=== PATIENT | female | born 1965 | race African-American/Black ===

== ENCOUNTER 2016-11-24 19:25 | Emergency (ER) | payer OTHER ==
[~2016-11-24] VITALS: Ht 160 cm; Wt 65.3 kg
[~2016-11-24 19:25] MED LIST: BACTRIM-DS1 EA ORAL; IBUPROFEN600 MG ORAL; NKM; NORCO 5-325 TA1 EACH PO
[2016-11-24 19:40] VITALS: BP 180/100
[2016-11-24] MEDS ORDERED: Sodium Chloride 500ML 500 ML IV ONE (19:55)
[2016-11-24 20:17] LABS: APPEARANCE,URINE CLEAR; BASOPHILS % (AUTO) 0.7 % (0.0-2.0); EOSINOPHILS % (AUTO) 3.9 % (0.0-3.0); KETONES,URINE NEGATIVE (NEGATIVE); LEUKOCYTE ESTERASE ,URINE 3+ (NEGATIVE); MEAN CORPUSCULAR HEMOGLOBIN 27.3 PG (27.0-31.0); MEAN CORPUSCULAR HGB CONC 31.6 G/DL (32.0-36.0); MEAN CORPUSCULAR VOLUME 86 FL (80-99); MEAN PLATELET VOLUME 7.1 FL (6.5-10.1); MONOCYTES % (AUTO) 7.9 % (1.0-10.0); NEUTROPHILS % (AUTO) 44.5 % (45.0-75.0); NITRITE,URINE NEGATIVE (NEGATIVE); PH,URINE 7 (4.5-8.0); PLATELET COUNT 279 K/UL (150-450); PROTEIN,URINE NEGATIVE (NEGATIVE); RED BLOOD COUNT 4.72 M/UL (4.20-5.40); RED CELL DISTRIBUTION WIDTH 12.2 % (11.6-14.8); UROBILINOGEN,URINE NORMAL MG/DL (0.0-1.0); WHITE BLOOD COUNT 7.2 K/UL (4.8-10.8)
[2016-11-24 20:27] LABS: BACTERIA,URINE FEW /HPF; SQUAMOUS EPITHELIAL CELL,UR FEW /LPF (NONE/OCC)
[2016-11-24 20:47] LABS: ALANINE AMINOTRANSFERASE 10 U/L (3-33); ALBUMIN/GLOBULIN RATIO 1.7 (1.0-2.7); ANION GAP 12 (5-15); ASPARTATE AMINO TRANSFERASE 15 U/L (5-40); CALCIUM 9.8 mg/dL (8.6-10.2); CARBON DIOXIDE 27 mEQ/L (20-30); CHLORIDE 104 mEQ/L (98-107); GLOMERULAR FILTRATION RATE > 60 mL/min (>60); HEMOLYSIS 5; LIPASE 26 U/L (< 60); POTASSIUM 4.3 mEQ/L (3.4-4.9); SODIUM 143 mEQ/L (135-145); TOTAL PROTEIN 7.5 g/dL (6.6-8.7)
[2016-11-24] MEDS ORDERED: Morphine Sulfate 4mg/ml Inj IVP ONE (21:15)
[2016-11-24] MEDS ORDERED: KEFLEX500 MG ORAL (22:27)
[2016-11-24] MEDS ORDERED: TRAMADOL HCL50 MG ORAL (22:27)
[2016-11-24 22:30] VITALS: BP 165/84
--- NOTE | 2016-11-25 09:25 | Diagnostic Imaging Report ---
Clinical Indication: Lower abdominal and right flank pain Technique: No oral contrast utilized, per emergency room physician request IV administration nonionic contrast. Venous phase spiral acquisition obtained through the abdomen and pelvis. Multiplanar reconstructions were generated. Total dose length product 553 mGycm. CTDIvol(s) 11 mGy. Dose reduction achieved using automated exposure control Comparison: None Findings: What may be a short normal appendix is seen posterior to the cecum. No findings to suggest acute appendicitis are evident. There is no evidence of diverticulosis or diverticulitis. No small bowel distention. No free or loculated intraperitoneal air or fluid is evident. Distal esophagus is unremarkable. There is equivocal mild wall thickening of the gastric body and antrum, more likely an artifact of under distention The liver demonstrates a 19 mm lesion in segment 6. This demonstrates low attenuation with dense peripheral nodular enhancement. No other focal liver lesions are demonstrated. The gallbladder, bile ducts, pancreas, spleen, adrenals are unremarkable. There is mild fullness of bilateral renal collecting systems, but no apparent delay in renal contrast enhancement and no ureteral obstructing lesion demonstrated. No focal renal abnormality demonstrated. No renal or ureteral calculi. There are prominent varicosities in the left adnexal region. The left ovarian vein is dilated. No pelvic mass or adenopathy. Bladder is unremarkable. The included lung bases demonstrate an unusual soft tissues mass in the anteromedial right costophrenic sulcus. This measures 16 x 19 mm in diameter. There is also an incompletely included at least 15 mm water attenuation lesion inferior to the right lower lobe pulmonary vein. Atelectatic changes are seen at both lung bases. Impression: Equivocal mild wall thickening of the gastric body and antrum, as more likely an artifact of under distention, but gastritis or peptic ulcer disease not excludable 19 mm low-attenuation lesion with dense peripheral nodular enhancement in the right hepatic lobe. Likely but not definitively a benign hemangioma. Further evaluation with MRI or CT with hemangioma protocol recommended Prominent left adnexal varicosities. Likely secondary to ovarian venous reflux. Correlate with possible symptoms of pelvic congestion syndrome 16 x 19 mm soft tissue mass in the anteromedial right costophrenic sulcus. Given the peripheral location, probably a focus of postinflammatory change. Neoplasm not completely excludable, and further evaluation is recommended Incompletely included at least 15 mm water attenuation lesion inferior to the right lower lobe pulmonary vein.. Likely an inclusion cyst. Recommend chest CT for further evaluation of the above findings Nonspecific mild fullness of bilateral renal collecting systems Incidental finding bilateral basilar atelectasis This agrees with the preliminary interpretation provided overnight by Dr. Pickett The CT scanner at [facility] is accredited by the [employer] and the scans are performed using protocols designed to limit radiation exposure to as low as reasonably achievable to attain images of sufficient resolution adequate for diagnostic evaluation.
--- NOTE | 2016-11-27 21:52 | Emergency Room Report ---
History of Present Illness General Chief Complaint: Abdominal Pain Source: Patient Present Illness HPI 51-year-old female presents ED complaining of lower abdominal pain for last 4 days. States pain is sharp, 8/10, radiating to the patient. Patient states she has had frequent urinary tract infections in the past. Denies fevers or chills. Denies nausea or vomiting. Denies chest pain shortness of breath. No other aggravating relieving factors. Denies any other associated symptoms Allergies: Coded Allergies: No Known Allergies (Unverified , 06/24/12) Patient History Past Medical History: none Past Surgical History: none Pertinent Family History: none Social History: Denies: smoking, alcohol use, drug use Last Menstrual Period: 02/11 Now: No : 4 Para: 6 Immunizations: UTD Reviewed Nursing Documentation: PMH: Agreed, PSxH: Agreed Nursing Documentation-PMH Past Medical History: No Stated History Review of Systems All Other Systems: negative except mentioned in HPI Physical Exam Vital Signs Date Time Temp Pulse Resp B/P (MAP) Pulse Ox O2 Delivery O2 Flow Rate FiO2 11/24/16 19:33 98.2 59 15 180/100 100 Room Air Sp02 EP Interpretation: reviewed, normal General Appearance: no apparent distress, alert, GCS 15, non-toxic Head: normocephalic, atraumatic Eyes: bilateral eye normal inspection, bilateral eye PERRL ENT: hearing grossly normal, normal pharynx, no angioedema, normal voice Neck: full range of motion, supple/symm/no masses Respiratory: chest non-tender, lungs clear, normal breath sounds, speaking full sentences Cardiovascular #1: regular rate, rhythm, no edema Cardiovascular #2: 2+ carotid (R), 2+ carotid (L), 2+ radial (R), 2+ radial (L) , 2+ dorsalis pedis (R), 2+ dorsalis pedis (L) Gastrointestinal: normal bowel sounds, soft, non-distended, no guarding, no rebound, tenderness Rectal: deferred Genitourinary: normal inspection, CVA tenderness (R), CVA tenderness (L) Musculoskeletal: back normal, gait/station normal, normal range of motion, non- tender Neurologic: alert, oriented x3, responsive, motor strength/tone normal, sensory intact, speech normal Psychiatric: judgement/insight normal, memory normal, mood/affect normal, no suicidal/homicidal ideation Reflexes: 3+ bicep (R), 3+ bicep (L), 3+ tricep (R), 3+ tricep (L), 3+ knee (R) , 3+ knee (L) Skin: normal color, no rash, warm/dry, well hydrated Lymphatic: no adenopathy Medical Decision Making Diagnostic Impression: Primary Impression: UTI (urinary tract infection) Qualified Codes: N39.0 - Urinary tract infection, site not specified Additional Impression: Abdominal pain Qualified Codes: R10.30 - Lower abdominal pain, unspecified ER Course Hospital Course 51-year-old F presents to ED with abdominal pain Differential diagnosis includes-appendicitis, cholecystitis, small bowel obstruction, gastritis, Clinical course Patient placed on stretcher. After initial history and physical I ordered labs , IV fluids, pain medications and CT scan Labs - no leukocytosis, electrolytes ok, LFTs normal, UA + bacteria CT scan shows thickening of the gastric wall consistent with gastritis, lesion in the liver consistent with hemangioma and possible nodule in the lung No acute findings however I did discuss these incidental findings with the patient. Recommend followup with PMD. Given the suprapubic pain radiating to the flanks along with positive bacteria the urine we will treat as UTI I did tell the patient if symptoms do recur she should return for possible ultrasound I feel this is a highly complex case requiring extensive working including EKG/ Rhythm strip, Xray/CT/US, Blood/urine lab work, repeat exams while in ED, and administration of strong opiates/narcotics for pain control, admission to hospital or close patient follow up. Diagnosis - UTI, abdominal pain Stable and discharged to home with Rx Keflex, Tramadol. Followup with PMD. Return to ED if symptoms recur or worsen Labs Test 11/24/16 20:00 White Blood Count 7.2 K/UL (4.8-10.8) Red Blood Count 4.72 M/UL (4.20-5.40) Hemoglobin 12.9 G/DL (12.0-16.0) Hematocrit 40.8 % (37.0-47.0) Mean Corpuscular Volume 86 FL (80-99) Mean Corpuscular Hemoglobin 27.3 PG (27.0-31.0) Mean Corpuscular Hemoglobin Concent 31.6 G/DL (32.0-36.0) Red Cell Distribution Width 12.2 % (11.6-14.8) Platelet Count 279 K/UL (150-450) Mean Platelet Volume 7.1 FL (6.5-10.1) Neutrophils (%) (Auto) 44.5 % (45.0-75.0) Lymphocytes (%) (Auto) 43.0 % (20.0-45.0) Monocytes (%) (Auto) 7.9 % (1.0-10.0) Eosinophils (%) (Auto) 3.9 % (0.0-3.0) Basophils (%) (Auto) 0.7 % (0.0-2.0) Urine Color Pale yellow Urine Appearance Clear Urine pH 7 (4.5-8.0) Urine Specific [place] 1.015 (1.005-1.035) Urine Protein Negative (NEGATIVE) Urine Glucose (UA) Negative (NEGATIVE) Urine Ketones Negative (NEGATIVE) Urine Occult Blood Negative (NEGATIVE) Urine Nitrite Negative (NEGATIVE) Urine Bilirubin Negative (NEGATIVE) Urine Urobilinogen Normal MG/DL (0.0-1.0) Urine Leukocyte Esterase 3+ (NEGATIVE) Urine RBC 2-4 /HPF (0 - 2) Urine WBC 5-10 /HPF (0 - 2) Urine Squamous Epithelial Cells Few /LPF (NONE/OCC) Urine Bacteria Few /HPF (NONE) Sodium Level 143 mEQ/L (135-145) Potassium Level 4.3 mEQ/L (3.4-4.9) Chloride Level 104 mEQ/L (98-107) Carbon Dioxide Level 27 mEQ/L (20-30) Anion Gap 12 (5-15) Blood Urea Nitrogen 13 mg/dL (7-23) Creatinine 1.0 mg/dL (0.5-0.9) Estimat Glomerular Filtration Rate > 60 mL/min (>60) Glucose Level 106 mg/dL (74-106) Calcium Level 9.8 mg/dL (8.6-10.2) Total Bilirubin < 0.2 mg/dL (0.0-1.2) Aspartate Amino Transf (AST/SGOT) 15 U/L (5-40) Alanine Aminotransferase (ALT/SGPT) 10 U/L (3-33) Alkaline Phosphatase 48 U/L (35-104) Total Protein 7.5 g/dL (6.6-8.7) Albumin 4.8 g/dL (3.5-5.2) Globulin 2.7 g/dL Albumin/Globulin Ratio 1.7 (1.0-2.7) Lipase 26 U/L (< 60) CT/MRI/US Diagnostic Results CT/MRI/US Diagnostic Results : Imaging Test Ordered: CT A/P Impression ? R liver hemangioma, thickening of gastric wall c/w gastritis. ? lung nodule Last Vital Signs Date Time Temp Pulse Resp B/P (MAP) Pulse Ox O2 Delivery O2 Flow Rate FiO2 11/24/16 22:30 11 165/84 97 Room Air 11/24/16 19:40 98.2 11/24/16 19:33 59 Status: improved Disposition: HOME, SELF-CARE Condition: Stable Scripts Cephalexin* (KEFLEX*) 500 Mg Capsule 500 MG ORAL Q6H, #28 CAP 0 Refills Prov: NARENDRA SINGLETARY M.D. 11/24/16 Tramadol Hcl* (ULTRAM*) 50 Mg Tablet 50 MG ORAL Q6H Y for For Pain, #30 TAB 0 Refills Prov: NARENDRA SINGLETARY M.D. 11/24/16 Patient Instructions: Dysuria NARENDRA SINGLETARY M.D. Nov 27, 2016 21:52
== END 2016-11-24 22:30 | disposition home or self-care (01) ==
LOC: EMR 19:50
DX: N39.0 Urinary tract infection, site not specified (principal); R10.30 Lower abdominal pain, unspecified; J98.11 Atelectasis
CPT/HCPCS: 36415; 74177; 80053; 81003; 83690; 85025; 96361; 96374; 99284; J2270; Q9967